=== PATIENT | male | born 1960 | race Caucasian/White ===

== ENCOUNTER → 2017-08-31 | Day surgery (SDC) | payer OTHER ==
[~2017-08-31] MED LIST: DEXAMETHASONE SOD PHOS 4 MG/ML VIAL ONE; EPINEPHrine HCL (1:1000) 1 MG/ML VIAL ONE; LACTATED RINGER'S 1000 ML INJ 1,000 ML ONE; MIDAZOLAM HCL 2 MG/2 ML VIAL ONE; MOXIFLOXACIN 0.5% OPHT SOLN 3 ML BTL ONE; ONDANSETRON HCL 4 MG/2 ML VIAL IV PUSH ONE; PHENYLEPHRINE HCL 10% OPTH SOLN 5 ML BTL ONE; PROPOFOL 200 MG/20 ML AMP IV ONE; SODIUM CHLORIDE 0.9% INJ 10 ML ONE; TETRACAINE 0.5% OPTH SOLN 15 ML BTL ONE; TOBRAMYCIN/DEXAMETHASONE OPTH OINT 3.5 GM TUBE ONE; TRIAMCINOLONE ACETONIDE 40 MG/ML VIAL ONE; ceFAZolin INJ 1,000 MG VIAL ONE; prednisoLONE ACETATE 1% OPHT SUSP 5 ML BTL ONE
--- NOTE | 2017-09-06 00:23 | MP ---
cc: Hakan Brennan MD DATE OF OPERATION: 08/31/2017 PREOPERATIVE DIAGNOSIS: Retained cataract lens material, right eye. POSTOPERATIVE DIAGNOSIS: Retained cataract lens material, right eye. PROCEDURE: Pars plana vitrectomy, insertion of intravitreal Kenalog, right eye; pars plana lensectomy, right eye. ANESTHESIA: Dr. Mendiola general. ESTIMATED BLOOD LOSS: Less than 1 mL. COMPLICATIONS: None. INDICATIONS FOR PROCEDURE: This delightful patient presented with increased intraocular pressure and blurred vision, with retained cataract material of his right eye. The patient elected for surgical correction, understanding the risks, benefits, and alternatives. DESCRIPTION OF PROCEDURE: After informed consent was obtained, patient was brought to the operating room. General anesthesia was established. The right eye was prepped and draped in sterile fashion. Betadine in the conjunctival fornix. A 3-port pars plana vitrectomy was established with a self-contained infusion cannula. Core vitreous was evacuated, along with the retained cataract material. No holes, tears, or detachments were identified with scleral ____ examination. Intravitreal Kenalog was instilled. Trocar was removed and sclerotomy was closed. Subconjunctival injections of Ancef and dexamethasone were given. The eye was patched with tobramycin ointment. The patient was brought to the recovery room in stable condition and continue followup with ____ for his postoperative care. MD PILAR Wilson/MARIFER , 10:23 PM , 12:22 AM
== END | disposition home or self-care (01) ==
LOC: ESDC 10:47
PROVIDERS: ATTEND Ophthalmology
DX: H59.021 Cataract (lens) fragments in eye following cataract surgery, right eye (principal)
CPT/HCPCS: 00142; 66850; J0171; J0690; J1100; J2250; J2405; J3010; J3301; J7120